=== PATIENT | male | born 1950 | race Caucasian/White ===

== ENCOUNTER → 2020-05-22 10:31 | Outpatient (REF) | payer BC, SELFPAY | LOC: ANHLAB 10:31 | PROVIDERS: Visit Provider Nurse Practitioner | DX: C44.519 Basal cell carcinoma of skin of other part of trunk (principal) | CPT/HCPCS: 88305; 88331; 88332 ==

== ENCOUNTER → 2020-10-17 13:28 | Outpatient (CLI) | payer BC, SELFPAY ==
--- NOTE | ~2020-10-17 | XR_ITS ---
XR chest 2V DATE: 10/17/2020 13:52 INDICATION: Upper respiratory infection TECHNIQUE: PA and lateral views COMPARISON: None FINDINGS: Normal heart size. No hilar or mediastinal enlargement. 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 There is mild infiltrate or atelectasis at the left lung base. Otherwise no pulmonary infiltrate or consolidation, pleural effusion or pulmonary vascular congestion or pneumothorax. Osteopenia. IMPRESSION: Mild infiltrate or atelectasis at the left lung base Reviewed, dictated and finalized at location A.
== END ==
PROVIDERS: PCP Internal Medicine; Visit Provider Internal Medicine
DX: J06.9 Acute upper respiratory infection, unspecified (principal)
CPT/HCPCS: 71046

== ENCOUNTER → 2020-10-18 06:54 | Outpatient (CLI) | payer BC, SELFPAY ==
[2020-10-18 18:26] LABS: SARS-CoV-2 RNA PCR Positive
== END ==
PROVIDERS: PCP Internal Medicine; Visit Provider Internal Medicine
DX: U07.1 COVID-19 (principal)
CPT/HCPCS: C9803; U0003; U0005

== ENCOUNTER 2024-03-30 09:20 | Outpatient (CLI) | payer BC, SELFPAY ==
--- NOTE | ~2024-03-30 | MMUS_ITS ---
EXAMINATION: MM diagnostic berta LT w [facility], US breast LT limited HISTORY: The left breast tenderness. TECHNIQUE: Additional 3-D tomosynthesis images of the left breast were performed and synthetic 2-D im ages were generated. Comparison right MLO view performed. CAD analysis was submitted and interpreted. High resolution Limited left breast ultrasound was performed. COMPARISON: None BREAST PARENCHYMAL COMPOSITION: Not dense: There are scattered areas of fibroglandular density. FINDINGS: MAMMOGRAPHIC FINDINGS: There is asymmetric left-sided gynecomastia. There are no discrete masses or architectural distortion . No suspicious calcifications. ULTRASOUND: Limited left breast ultrasound: Prominent subareolar soft tissue is identified, consistent with nancy l fibroglandular tissue. No suspicious masses to suggest malignancy. IMPRESSION: 1. No evidence for malignancy in the left breast. Benign asymmetric gynecomastia. 2. Recommend follow-up clinical management for gynecomastia. BI-RADS CATEGORY 2 - BENIGN FINDINGS Reviewed, dictated and finalized at location B. IMPRESSION: 1. No evidence for malignancy in the left breast. Benign asymmetric gynecomasti a. 2. Recommend follow-up clinical management for gynecomastia. BI-RADS CATEGORY 2 - BENIGN FINDINGS
== END 2024-03-30 09:21 | disposition home or self-care (01) ==
LOC: MICIMG 09:20
PROVIDERS: PCP Internal Medicine; Visit Provider Internal Medicine
DX: N63.20 Unspecified lump in the left breast, unspecified quadrant (principal)
CPT/HCPCS: 76642; 77061; 77065; G0279